=== PATIENT | female | born 1990 | race Caucasian/White ===

== ENCOUNTER 2016-11-12 15:43 | Inpatient (IN) | payer OTHER ==
[~2016-11-12] VITALS: Ht 154.9 cm; Wt 67.2 kg
[2016-11-12 16:11] VITALS: Ht 154.9 cm; Wt 67.2 kg
[2016-11-12 16:12] VITALS: BP 115/62; PULSE 68; RESP 16
--- NOTE | 2016-11-12 16:38 | TRIAGE ---
OB Triage Datetime Report Generated by CPN: 11/12/2016 16:38 Datetime: 11/12/2016 16:23 Labor Evaluation Frequency: 2-3 Monitor Mode: External Duration (sec)2399: 50-60 Quality: Strong Pattern: Normal: <= 5 Contractions in 10 Minutes Resting Tone [place]: Relaxed Heart Rate FHR Baseline Rate: 145 Monitor Mode: External US Variability: Moderate 6-25 bpm Decelerations: None Category: Category I Pain Assessment Pain Scale: 7 Pain Presence: Intermittent Pain Type: Contraction Pain Location: Abdomen Pain Goal: 3 Datetime: 11/12/2016 16:22 Assessment Type: Triage Maternal Assessment Level of Consciousness: Fully Conscious DTR's/Clonus: DTRs 2+; No Clonus Headache: Denies Blurred Vision: No Respiratory Effort: Unlabored; Regular Rhythm; Equal Expansion Breath Sounds, Left: Clear and Equal Breath Sounds, Right: Clear and Equal Nausea/Vomiting: Denies RUQ Epigastric Pain: Denies Facial Edema: None Fall Risk Assessment History of Falling: (0) No Secondary Diagnosis: (0) No Ambulatory Aid: (0) Bedrest/Nurse Assist IV Therapy: (0) No Gait: (0) Normal/Bedrest/Immobile Mental Status: (0) Oriented to Own Ability Fall Score: 0 Fall Risk Score Definition: No Risk: No action required Datetime: 11/12/2016 16:09 Time of Arrival: 11/12/2016 15:41 EGA: 39.5 Arrived By: Wheelchair Arrived From: Home Chief Complaint: Pt. came to hospital c/o uc @1100,q 10-15mins, pain level 7/10, srom @1445, joel r Movement: Present Contractions: Irregular Time Contractions Began: 11/12/2016 11:00 Rupture of Membranes: Ruptured Vaginal Bleeding: None Vaginal Discharge: Denies Recent Sexual Intercouse: Denies Abdominal Trauma: Not Applicable Patient Complaints: Contractions Time Provider Notified: 11/12/2016 15:55 Provider Notified: Initial Plan: r/o labor Datetime: 11/12/2016 15:55 Vaginal Exam Dilatation (cms): 3.0 Effacement (%): 80 Station: -2 Exam By: Membrane Status: Ruptured Membranes Rupture Method: Spontaneous Amniotic Fluid Color: Clear Amniotic Fluid Amount: Small Amniotic Fluid Odor: None
--- NOTE | 2016-11-12 16:44 | HP ---
Date/Time of Note Date/Time of Note DATE: 11/12/16 TIME: 16:40 OB - History Hx of Present Free Text/Dictation 26 y.o. with an IUP at 39w 5d came in labor with a cervical exam of 80-90% /3/-2/ruptured membranes. Chief Complaint: SROM and in labor. Estimated Due Date: Nov 14, 2016 : 1 Para: 0 Care: Good Care Ultrasounds: Normal mid trimester US Obstetrical Complications: None Medical Complications: Respiratory (Asthma, but no meds needed in 3 years.) Past Family/Social History * Past Medical, Surgical, Family and Obstetric Histories reviewed from pt as records not available. Blood Type: Unknown Rubella: unknown RPR/VDRL: Unknown GBS Status: Unknown HBsAG: Unknown OB Admission Exam Vital Signs Vital Signs Vital Signs Date Time Temp Pulse Resp B/P Pulse Ox O2 Delivery O2 Flow Rate FiO2 11/12/16 16:12 98.8 68 16 115/62 Physical Exam HEENT: WNL Heart: Rhythm Normal Lungs: Clear Abdomen: WNL Extremities: Normal Reflexes: Normal Cervical Dilatation: 3cm Effacement: Other (80-90%) Station: -2 Membranes: Ruptured Amniotic Fluid: Clear Heart Rate: 140's Accelerations: Accelerations Present Decelerations: No Decelerations Varibility: Moderate Contractions on Admission: < 5 Minutes Apart OB Assessment/Plan Reason for admission: active labor, rupture of membranes Other Assessment: Asthma Plan: Expectant Management TONNY KLEIN MD Nov 12, 2016 16:44
[2016-11-12] MEDS ORDERED: LACTATED RINGER'S 1,000 ML IV PRN (17:06)
[2016-11-12] MEDS ORDERED: AMPICILLIN 2 GM/NS (PMX) 100 ML ONE (17:10)
[2016-11-12 17:18] LABS: ADD SCAN DIFF NO; BASOPHILS % 0.1 % (0.0-2.0); EOSINOPHILS # 0.1 10^3/ul (0.0-0.5); EOSINOPHILS % 0.7 % (0.0-7.0); HEMATOCRIT 40.5 % (37.0-47.0); HEMOGLOBIN 13.5 g/dl (12.0-16.0); LYMPHOCYTES # 1.2 10^3/ul (0.8-2.9); LYMPHOCYTES % 11.5 % (15.0-51.0); MEAN CORPUSCULAR HEMOGLOBIN 30.2 pg (29.0-33.0); MEAN CORPUSCULAR HGB CONC 33.3 g/dl (32.0-37.0); MEAN CORPUSCULAR VOLUME 90.6 fl (82.0-101.0); MEAN PLATELET VOLUME 10.2 fl (7.4-10.4); MONOCYTE # 0.8 10^3/ul (0.3-0.9); MONOCYTES % 7.3 % (0.0-11.0); NEUTROPHIL # 8.6 10^3/ul (1.6-7.5); PLATELET COUNT 231 10^3/UL (140-415); RED BLOOD COUNT 4.47 10^6/ul (4.20-5.40); WHITE BLOOD COUNT 10.8 10^3/ul (4.8-10.8)
[2016-11-12] MEDS: LACTATED RINGER'S 1,000 ML IV SCH ×2 (17:20→23:14)
[2016-11-12] MEDS ORDERED: LIDOCAINE 1% (MPF) 30 ML INJ INJ PRN (17:30)
[2016-11-12] MEDS ORDERED: MISOPROSTOL 200 MCG TAB PR PRN (17:30)
[2016-11-12] MEDS ORDERED: BUTORPHANOL 2 MG INJ IV PRN (17:30)
[2016-11-12] MEDS ORDERED: CARBOPROST 250 MCG INJ IM PRN (17:30)
[2016-11-12] MEDS ORDERED: ACETAMINOPHEN/CODEINE #3 TAB PO PRN (17:30)
[2016-11-12] MEDS ORDERED: IBUPROFEN 600 MG TAB PO PRN (17:30)
[2016-11-12] MEDS ORDERED: OXYTOCIN 30 UNITS/LR 500 ML IV PRN (17:30)
[2016-11-12] MEDS ORDERED: AMPICILLIN 2 GM/NS (PMX) 100 ML IV ONE (17:30)
[2016-11-12] MEDS ORDERED: OXYTOCIN 30 UNITS/LR 500 ML IV SCH ×3 (17:30→18:30)
[2016-11-12] MEDS ORDERED: METHYLERGONOVINE 0.2 MG INJ IM PRN (17:30)
[2016-11-12 17:45] LABS: INR 0.93; PARTIAL THROMBOPLASTIN TIME 24.2 Sec (25.0-35.0); PROTIME 12.5 Sec (12.2-14.2)
[2016-11-12] MEDS ORDERED: FENTAnyl 2MCG/ML-ROPIV 0.2% 100 ML ONE (19:45)
[2016-11-12] MEDS ORDERED: NALOXONE (0.4 MG/ML) INJ IV PRN (20:00)
[2016-11-12] MEDS ORDERED: FENTAnyl 2MCG/ML-ROPIV 0.2% 100 ML BAG EPI SCH (20:00)
[2016-11-12 20:53] LABS: BARBITURATES Negative (NEGATIVE); BENZODIAZEPINES Negative (NEGATIVE); CANNABINOIDS Negative (NEGATIVE); COCAINE Negative (NEGATIVE); OPIATES Negative (NEGATIVE)
[2016-11-12] MEDS: AMPICILLIN 1 GM/NS (PMX) 50 ML IV SCH (21:13)
[2016-11-12] MEDS ORDERED: MINERAL OIL LIGHT 10 ML VIAL TOP ONE (23:00)
--- NOTE | 2016-11-13 02:01 | LDN ---
Date/Time of Note Date/Time of Note DATE: 11/13/16 TIME: 01:59 Delivery Summary vavd secondary to maternal exhaustion at plust 3 station. 2 pulls with no pops no complication Weeks of Gestation term Assisted Vaginal Delivery: Vacuum Placenta Delivered: Spontaneously Meconium: none Episiotomy: No Laceration repair: 1st degree vaginal lacation repair with 2-0 and 3-0 chromic Anesthesia type: Epidural Estimated blood loss: 250 Sponge & Needle done & correct: Yes All needle counts correct: Yes Any foreign bodies felt in the: No Problems: Delivery Information Sex Infant Sex: female Apgars 1 Minute: 8 5 Minute: 9 Suctioning Nose & mouth suctioned at lewis: No Delee suction performed: No Umbilical Cord Umbilical cord with: 3 Vessels Cord presentations: no nuchal cord Cord Blood was obtained: Yes JANELL SINHA MD Nov 13, 2016 02:01
[2016-11-13] MEDS ORDERED: BENZOCAINE 20% 56 ML SPRAY TOP PRN (02:30)
[2016-11-13] MEDS ORDERED: MISOPROSTOL 200 MCG TAB PR PRN (02:30)
[2016-11-13] MEDS ORDERED: CARBOPROST 250 MCG INJ IM PRN (02:30)
[2016-11-13] MEDS ORDERED: WITCH HAZEL/GLYCERIN PAD PR PRN (02:30)
[2016-11-13] MEDS ORDERED: LANOLIN 7 GM TUBE TOP PRN (02:30)
[2016-11-13] MEDS ORDERED: ONDANSETRON 4 MG INJ IV PRN (02:30)
[2016-11-13] MEDS ORDERED: OXYCODONE/ASPIRIN (4.88/325) TAB PO PRN ×2 (02:30)
[2016-11-13] MEDS ORDERED: OXYTOCIN 30 UNITS/LR 500 ML IV PRN (02:30)
[2016-11-13] MEDS ORDERED: DIBUCAINE 1% 30 GM OINT PR PRN (02:30)
[2016-11-13] MEDS ORDERED: METHYLERGONOVINE 0.2 MG INJ IM PRN (02:30)
[2016-11-13] MEDS ORDERED: SENNA/DOCUSATE NA (8.6MG/50MG) TAB PO PRN (02:30)
[2016-11-13] MEDS: AMPICILLIN 1 GM/NS (PMX) 50 ML IV SCH (02:35)
[2016-11-13 03:45] VITALS: BP 111/61; PULSE 79; RESP 18
[2016-11-13] MEDS: IBUPROFEN 600 MG TAB PO SCH ×4 (05:56→23:55)
[2016-11-13] MEDS: LACTATED RINGER'S 1,000 ML IV* SCH ×3 (06:23→18:01)
[2016-11-13 08:10] VITALS: BP 103/55; PULSE 68; RESP 18
[2016-11-13] MEDS: SENNA/DOCUSATE NA (8.6MG/50MG) TAB PO SCH ×2 (12:46→21:51)
[2016-11-13 16:30] VITALS: BP 100/56; PULSE 85; RESP 18
[2016-11-13 20:40] VITALS: BP 99/66; PULSE 79; RESP 18
[2016-11-14 04:00] VITALS: BP 101/70; PULSE 89; RESP 18
[2016-11-14] MEDS: IBUPROFEN 600 MG TAB PO SCH ×3 (06:02→18:34)
--- NOTE | 2016-11-14 07:17 | PD.PPDC ---
PROBATION AGENT Discharge Instruction Condition Patient Condition: Fair Diet Diet: Resume Regular Diet Activity/Restrictions Restrictions: No Sexual Activity Nothing in the Vagina No [place] No Tampons, douche Wound/Drain Care Instructions Wound/Drain Care Instructions: Wash with soap and water Keep clean and dry Follow-up Follow-up with Physician: 3, Week/Weeks Return to clinic for DONOR RELATIONS MANAGER Instructions: Fever greater than 101 Chills Worsening abdominal pain Excessive Vaginal Bleeding More than 2 pads per hour Unable to tolerate diet OB Instructions: Breast Tenderness Depression Blurried Vision Headache Surgical Instructions: Incisional Drainage Incisional Redness JANELL SINHA MD Nov 14, 2016 07:17
--- NOTE | 2016-11-14 07:20 | DS ---
Date/Time of Note Date/Time of Note DATE: 11/14/16 TIME: 07:18 Obstetrical Discharge Record Final Diagnosis Final Diagnosis: Term delivered Vaginal Delivery Obstetrical Delivery: Laceration, Repaired, Successful Complications Augmentation: No Induction: No Rupture of Membranes: No Condition on Discharge Physical Assessment Voiding: Yes Bowel Movement: Yes Breast: Soft, non-tender, Filling Fundus: Firm Calf Tenderness: No Patient Condition: Fair JANELL SINHA MD Nov 14, 2016 07:19
[2016-11-14 08:39] LABS: ADD SCAN DIFF NO
[2016-11-14 08:45] LABS: BASOPHILS % 0.1 % (0.0-2.0); EOSINOPHILS # 0.2 10^3/ul (0.0-0.5); EOSINOPHILS % 1.6 % (0.0-7.0); HEMATOCRIT 34.9 % (37.0-47.0); HEMOGLOBIN 11.6 g/dl (12.0-16.0); LYMPHOCYTES # 1.8 10^3/ul (0.8-2.9); LYMPHOCYTES % 16.9 % (15.0-51.0); MEAN CORPUSCULAR HEMOGLOBIN 30.9 pg (29.0-33.0); MEAN CORPUSCULAR HGB CONC 33.2 g/dl (32.0-37.0); MEAN CORPUSCULAR VOLUME 92.8 fl (82.0-101.0); MEAN PLATELET VOLUME 9.9 fl (7.4-10.4); MONOCYTE # 0.7 10^3/ul (0.3-0.9); MONOCYTES % 7.1 % (0.0-11.0); NEUTROPHIL # 7.7 10^3/ul (1.6-7.5); NEUTROPHILS % 73.8 % (39.0-77.0); PLATELET COUNT 167 10^3/UL (140-415); RED BLOOD COUNT 3.76 10^6/ul (4.20-5.40); RED CELL DISTRIBUTION WIDTH 14.2 % (11.5-14.5); WHITE BLOOD COUNT 10.4 10^3/ul (4.8-10.8)
[2016-11-14 09:00] VITALS: BP 101/58; PULSE 71; RESP 18
[2016-11-14] MEDS: SENNA/DOCUSATE NA (8.6MG/50MG) TAB PO SCH ×2 (09:45→22:01)
[2016-11-14 16:00] VITALS: BP 100/63; PULSE 84; RESP 16
[2016-11-14 20:00] VITALS: BP 99/57; PULSE 65; RESP 20
[2016-11-15] MEDS: IBUPROFEN 600 MG TAB PO SCH ×3 (00:19→12:20)
[2016-11-15 03:54] VITALS: BP 110/60; PULSE 70; RESP 20
[2016-11-15 08:20] VITALS: BP 104/54; PULSE 73; RESP 16
[2016-11-15] MEDS: SENNA/DOCUSATE NA (8.6MG/50MG) TAB PO SCH (10:14)
== END 2016-11-15 13:10 | disposition home or self-care (01) | DRG 775 ==
LOC: OBT 15:43 → L-D 15:44 → OBT 16:00 → L-D 16:00 → PP1 11-13 03:37
PROVIDERS: ADMIT Obstetrics & Gynecology; ATTEND Obstetrics & Gynecology
PROC: 10E0XZZ Delivery of Products of Conception, External Approach (ICD-10-PCS; principal; 2016-11-13)
PROC: 0HQ9XZZ Repair Perineum Skin, External Approach (ICD-10-PCS; 2016-11-13)
DX: O71.4 Obstetric high vaginal laceration alone (principal); O34.211 Maternal care for low transverse scar from previous cesarean delivery; Z3A.39 39 weeks gestation of pregnancy; Z37.0 Single live birth
CPT/HCPCS: 62319; 80307; 85025; 85610; 85730; 86592; 86900; 86901; 87340; 99464; G0463; J0290; J2590; J3010; J7120

== ENCOUNTER 2017-10-12 14:49 | Emergency (ER) | END 2017-10-12 18:14 | disposition home or self-care (01) ==

== ENCOUNTER 2017-10-15 01:07 | Emergency (ER) | END 2017-10-15 02:47 | disposition home or self-care (01) ==

== ENCOUNTER 2018-06-19 23:03 | Outpatient (CLI) | payer OTHER ==
[~2018-06-19] VITALS: Ht 154.9 cm; Wt 68.6 kg
[~2018-06-19 23:03] MED LIST: CYCL10TA7 PO; HYDR-3980 PO; IBUP800T48 PO; ONDA4TAB14 PO; OXYC-279 PO
[2018-06-19 23:30] VITALS: BP 93/60; PULSE 99; RESP 20
[2018-06-20 00:16] VITALS: Ht 154.9 cm; Wt 68.6 kg
[2018-06-20] MEDS ORDERED: PREN1TAB13 PO ×2 (04:21→05:04)
--- NOTE | 2018-06-20 04:46 | TRIAGE ---
OB Triage Datetime Report Generated by CPN: 06/20/2018 04:46 Datetime: 06/20/2018 04:30 Stage of : OB Triage Datetime: 06/20/2018 04:00 Stage of : OB Triage Labor Evaluation Frequency: 0 Monitor Mode: External Pattern: Normal: <= 5 Contractions in 10 Minutes Resting Tone [place]: Relaxed Heart Rate FHR Baseline Rate: 125 Monitor Mode: External US Variability: Moderate 6-25 bpm Accelerations: 15X15 Decelerations: None Category: Category I Datetime: 06/20/2018 03:15 Monitor Mode: External Monitor Mode: External US Datetime: 06/20/2018 02:23 Vaginal Exam Pool: Negative Datetime: 06/20/2018 02:00 Stage of : OB Triage Labor Evaluation Frequency: 0 Monitor Mode: External Pattern: Normal: <= 5 Contractions in 10 Minutes Resting Tone [place]: Relaxed Heart Rate FHR Baseline Rate: 130 Monitor Mode: External US Variability: Moderate 6-25 bpm Accelerations: 15X15 Decelerations: None Category: Category I Datetime: 06/20/2018 01:00 Stage of : OB Triage Labor Evaluation Frequency: 0 Monitor Mode: External Pattern: Normal: <= 5 Contractions in 10 Minutes Resting Tone [place]: Relaxed Heart Rate FHR Baseline Rate: 130 Monitor Mode: External US Variability: Moderate 6-25 bpm Accelerations: 15X15 Decelerations: None Category: Category I Datetime: 06/20/2018 00:20 Monitor Mode: External Monitor Mode: External US Datetime: 06/19/2018 23:57 Monitor Mode: External Monitor Mode: External US Datetime: 06/19/2018 23:40 Stage of : OB Triage Labor Evaluation Frequency: 0 Monitor Mode: External Pattern: Normal: <= 5 Contractions in 10 Minutes Resting Tone [place]: Relaxed Heart Rate FHR Baseline Rate: 130 Monitor Mode: External US Variability: Moderate 6-25 bpm Accelerations: 15X15 Decelerations: None Category: Category I Datetime: 06/19/2018 23:35 Stage of : OB Triage Maternal Assessment Level of Consciousness: Fully Conscious DTR's/Clonus: DTRs 2+; No Clonus Headache: Denies Blurred Vision: No Respiratory Effort: Unlabored; Regular Rhythm; Equal Expansion Breath Sounds, Left: Clear and Equal Breath Sounds, Right: Clear and Equal Nausea/Vomiting: Denies RUQ Epigastric Pain: Denies Lower Extremities Edema: None Degree: None Upper Extremities Edema: None Degree: None Facial Edema: None Temperature Route: Oral Fall Risk Assessment History of Falling: (0) No Secondary Diagnosis: (0) No Ambulatory Aid: (0) Bedrest/Nurse Assist IV Therapy: (0) No Gait: (0) Normal/Bedrest/Immobile Mental Status: (0) Oriented to Own Ability Fall Score: 0 Fall Risk Score Definition: No Risk: No action required Datetime: 06/19/2018 23:32 EGA: 33.5 Datetime: 06/19/2018 22:52 Time of Arrival: 06/19/2018 22:52 Arrived By: Wheelchair Arrived From: Home Chief Complaint: Flu like symptoms, Movement: Present Contractions: Denies/Absent Rupture of Membranes: Denies Vaginal Bleeding: None Vaginal Discharge: Denies Recent Sexual Intercouse: Denies Abdominal Trauma: Not Applicable Patient Complaints: Headache; Cough Additional Patient Complaints: lower abdominal pain on sneezing, headaches, sore throat, ear pain Time Provider Notified: 06/19/2018 23:40 Provider Notified: Dr. Estrada Initial Plan: CEFM, SILVINA, ROM plus
[2018-06-20] MEDS ORDERED: ACET500C5 PO (05:03)
--- NOTE | 2018-06-20 12:03 | PN ---
Triage Information Date/Time Late entry note for exam on June 19 2018 Reason for visit: Flu type symptoms. Weeks of Gestation 33 weeks and 5 days /Para 2 para 1 Diabetes: none Hypertention: none Additional information 27-year-old with IUP at 33 weeks and 5 days presented with complaint of flulike symptoms. Complaint of headache, sneezing, ear pain and sore throat. She also reports some leaking of fluid that thinks that might be urine. She denies any other symptoms. Denies any fever or chills. Denies any vaginal bleeding or decreased movement or contractions. Denies any comp occasions during her course. Objective Vital Signs Date Temp Pulse Resp B/P (MAP) Pulse Ox O2 O2 Flow FiO2 Time Delivery Rate 06/19/18 98.2 99 20 93/60 (71) Room Air 23:30 Heart Rate: 130's Heart Rate Comments Appropriate for gestational age Contractions: None Exam Appearance: Alert and oriented x4 does not appear to be in any acute distress Abdomen: Soft, gravid, fundal height consider gestational age, no tenderness, no rebound tenderness, no guarding, no rigidity Lungs: Clear to auscultation bilaterally : RRR NST: Appropriate for gestational age Results/Medications Results 24 hrs Laboratory Tests Test 06/20/18 02:30 Membranes Rupture NEGATIVE Imaging Results PROCEDURE: Obstetrical ultrasound, limited. CLINICAL INDICATION: Pelvic pain. TECHNIQUE: Multiple sonographic images of the pelvis were obtained using transabdominal technique. Images were obtained with khalil scale and color Doppler. The images were reviewed on a PACS workstation. COMPARISON: No prior studies are available for comparison. FINDINGS: There is a single living intrauterine gestation with the fetus in a vertex presentation. heart tones of 137 beats per minute are identified. The placenta is fundal in location, grade 1. There is normal amniotic fluid volume with an SILVINA of 17.0 cm. There is no evidence of placenta previa or abruption. IMPRESSION: Single live intrauterine gestation. Normal SILVINA of 17.0 cm. Disposition: Discharge Assessment/Plan IUP at 33 weeks and 5 days Flulike symptoms, no obstetrical issue at this point Leaking of likely urine. Speculum exam did not reveal any leaking of fluid, R OM test negative, Patient will be sent to emergency room for evaluation Advised the patient to have a follow-up within 48 hours after discharge from the hospital with primary OB office or sooner as needed Strict labor precautions kick count discussed with patient Adequate hydration discussed Verbalized understanding. All questions were answered to patient's best satisfaction DRAGAN SPEAR MD Jun 20, 2018 12:03
== END 2018-06-20 04:30 | disposition home or self-care (01) ==
LOC: OBT 23:03 → L-D 23:05 → OBT 06-20 04:30
PROVIDERS: ATTEND Obstetrics & Gynecology
DX: O26.893 Other specified pregnancy related conditions, third trimester (principal); Z3A.33 33 weeks gestation of pregnancy; J11.1 Influenza due to unidentified influenza virus with other respiratory manifestations
CPT/HCPCS: 76815; 84112; Z7500; G0463

== ENCOUNTER 2018-06-20 04:32 | Emergency (ER) | payer OTHER ==
[~2018-06-20] VITALS: Wt 67.9 kg
[~2018-06-20 04:32] MED LIST changes: +PREN1TAB13 PO
[2018-06-20 04:37] VITALS: BP 112/57; PULSE 103; RESP 18
--- NOTE | 2018-06-20 05:02 | ERD ---
ER Documentation Chief Complaint Chief Complaint COUGH, BODY ACHES, EAR PAIN X'S 2 MONTHS (33 WEEKS PG; CLEARED BY OB) HPI This is a 27-year-old female who presents emergency department with complaints of bilateral ear pain for about 2 months, cough and colds for about 3 days. Was cleared by OB. LMP: 10/26/2017. ERNST 08/02/2018. A0. Denies headache, dizziness, neck pain, neck stiffness, difficulty swallowing, difficult breathing lying flat, shoulder pain, chest pain, back pain, abdominal pain, pelvic pain, vaginal bleeding, nausea, vomiting, constipation, diarrhea, trauma, injury, falls, recent travel, recent long travel, recent exposure to any illness, recent antibiotic use in the last 3 months, fever, chills, seizures. ROS All systems reviewed and are negative except as per history of present illness. Medications Home Meds Active Scripts Pnv95/Ferrous Fumarate/FA ( Vitamins Tablet) 1 Each Tablet, 1 EACH PO DAILY, #30 TAB Prov:ADELE LEA 06/20/18 Acetaminophen* (Tylophen*) 500 Mg Capsule, 1 CAP PO Q6H PRN for PAIN AND OR ELEVATED TEMP, #20 CAP Prov:ADELE LEA F 06/20/18 Reported Medications Pnv95/Ferrous Fumarate/FA ( Vitamins Tablet) 1 Each Tablet, 1 EACH PO, TAB 06/20/18 Discontinued Scripts Cyclobenzaprine Hcl* (Cyclobenzaprine Hcl*) 10 Mg Tablet, 10 MG PO TID, #15 TAB Prov:JOANN SCHAEFER CLINICAL ASST 10/15/17 Oxycodone HCl/Acetaminophen (Percocet 5-325 mg Tablet) 1 Each Tablet, 1 EACH PO Q6, #20 TAB Prov:JOANN SCHAEFER CLINICAL ASST 10/15/17 Ibuprofen* (Motrin*) 800 Mg Tab, 800 MG PO Q6H PRN for PAIN AND OR ELEVATED TEMP, #30 TAB Prov:ELMIRA ALVAREZ MD 10/12/17 Ondansetron (Ondansetron Odt) 4 Mg Tab.rapdis, 4 MG PO Q6H PRN for NAUSEA AND/OR VOMITING, #10 TAB Prov:ELMIRA ALVAREZ MD 10/12/17 Hydrocodone/Acetaminophen ([place] 10-325 Tablet) 1 Each Tablet, 1 TAB PO Q6H PRN for PAIN, #12 TAB Prov:ELMIRA ALVAREZ MD 10/12/17 Allergies Allergies: Coded Allergies: No Known Allergy (Unverified , 06/20/18) PMhx/Soc Hx Alcohol Use: No Hx Substance Use: No Hx Tobacco Use: No Physical Exam Vitals Physical Exam Const: No acute distress Head: Atraumatic Eyes: Normal Conjunctiva ENT: Normal External Ears, Nose and Mouth. Bilateral ears: TMs are not erythematous. No bleeding. No discharge. No hearing loss. Nose: Midline. There is no frontal or maxillary sinus tenderness palpation. Throat: Uvula is in midline and nondisplaced. Tonsils are +1 bilaterally without redness without exudates. Tolerating secretions. Patent airway. Speaks full and clear sentences. Neck: Full range of motion. No meningismus. No nuchal rigidity. No signs of meningeal irritation. Resp: Clear to auscultation bilaterally. No accessory muscle use in breathing. Cardio: Regular rate and rhythm, no murmurs Abd: Soft, non tender, non distended. Normal bowel sounds Skin: No petechiae or rashes Back: No midline or flank tenderness. No CVA tenderness. Ext: No cyanosis, or edema Neur: Awake and alert. No neurological deficits. Psych: Normal Mood and Affect Results 24 hrs Current Medications Medications Dose Sig/Marielos Start Time Status Last (Trade) Ordered Route PRN Stop Time Admin Dose Reason Admin 500 mg ONCE STAT 06/20/18 DC 06/20/18 Acetaminophen PO 05:03 05:14 (Tylenol 06/20/18 05:04 Tab) Procedures/MDM Diagnostic tests: Clinical exam. Treatment: Tylenol. Re-evaluation: Respirations even and unlabored. Lung sounds are clear to auscultation. Differential diagnosis I have low suspicion for sepsis, meningitis, mastoiditis, peritonsillar abscess, pneumonia, severe dehydration. Final diagnosis: Upper respiratory infection. Prescription: Tylenol. vitamins. Follow-up with OB in the next 24-48 hours. Resources was also provided. Come back here in the emergency department for any new symptoms or any worsening sy mptoms. All questions and concerns were answered. Patient and family members verbalized understanding and agreed with plan of care. Hemodynamically stable on discharge. Departure Diagnosis: Primary Impression: Upper respiratory infection Condition: Stable Additional Instructions: Follow-up with OB in the next 24-48 hours. Resources was also provided. Come back here in the emergency department for any new symptoms or any worsening symptoms. ADELE LEA Jun 20, 2018 05:02
[2018-06-20] MEDS ORDERED: ACETAMINOPHEN 500 MG TAB PO STA (05:03)
[2018-06-20] MEDS ORDERED: ACET500C5 PO (05:03)
[2018-06-20] MEDS ORDERED: PREN1TAB13 PO (05:04)
== END 2018-06-20 05:21 | disposition home or self-care (01) ==
LOC: FTE 04:32
DX: O99.513 Diseases of the respiratory system complicating pregnancy, third trimester (principal); J06.9 Acute upper respiratory infection, unspecified; Z3A.33 33 weeks gestation of pregnancy
CPT/HCPCS: Z7502; Z7610; 99282